=== PATIENT | female | born 1975 | race Two or more races ===

== ENCOUNTER 2017-10-20 10:14 | Emergency (ER) | payer OTHER ==
[~2017-10-20] VITALS: Ht 172.7 cm; Wt 56.7 kg
[2017-10-20] MEDS ORDERED: LOPRESSOR25 MG PO (11:31)
== END 2017-10-20 11:35 | disposition home or self-care (01) ==
LOC: ER 10:14
DX: R00.2 Palpitations (principal)

== ENCOUNTER 2017-11-12 08:47 | Outpatient (CLI) | payer OTHER ==
[~2017-11-12 08:47] MED LIST: LOPRESSOR25 MG PO
== END 2017-11-12 08:49 | disposition home or self-care (01) ==
LOC: MAMO-SONO 08:47
DX: R92.8 Other abnormal and inconclusive findings on diagnostic imaging of breast (principal)

== ENCOUNTER 2018-11-25 09:32 | Outpatient (CLI) | payer OTHER | END 2018-11-25 09:37 | disposition home or self-care (01) | LOC: MAMO-SONO 09:32 | DX: R92.8 Other abnormal and inconclusive findings on diagnostic imaging of breast (principal); Z12.31 Encounter for screening mammogram for malignant neoplasm of breast ==

== ENCOUNTER 2019-12-08 09:00 | Outpatient (CLI) | payer OTHER | END 2019-12-08 09:05 | disposition home or self-care (01) | LOC: MAMO-SONO 09:00 | DX: Z12.31 Encounter for screening mammogram for malignant neoplasm of breast (principal); N60.11 Diffuse cystic mastopathy of right breast; N60.12 Diffuse cystic mastopathy of left breast ==

== ENCOUNTER 2020-02-04 08:37 | Emergency (ER) | payer OTHER ==
[~2020-02-04] VITALS: Ht 170.2 cm; Wt 59.0 kg
[2020-02-04] MEDS ORDERED: SULFAMETHOXAZO1 EACH (08:47)
== END 2020-02-04 09:54 | disposition home or self-care (01) ==
LOC: ER 08:37
DX: L03.114 Cellulitis of left upper limb (principal); S60.562A Insect bite (nonvenomous) of left hand, initial encounter; W57.XXXA Bitten or stung by nonvenomous insect and other nonvenomous arthropods, initial encounter; Y93.89 Activity, other specified; Y92.89 Other specified places as the place of occurrence of the external cause; Y99.8 Other external cause status

== ENCOUNTER 2021-01-10 13:48 | Outpatient (CLI) | payer OTHER ==
[~2021-01-10 13:48] MED LIST changes: +SULFAMETHOXAZO1 EACH
== END 2021-01-10 13:51 | disposition home or self-care (01) ==
LOC: MAMO-SONO 13:48
PROVIDERS: ATTEND Surgery Vascular Surgery
DX: Z12.39 Encounter for other screening for malignant neoplasm of breast (principal); R92.8 Other abnormal and inconclusive findings on diagnostic imaging of breast